=== PATIENT | male | born 1975 | race Caucasian/White ===

== ENCOUNTER 2020-10-26 09:43 | Emergency (ER) | payer OTHER ==
[~2020-10-26] VITALS: Ht 182 cm; Wt 100.0 kg
--- NOTE | 2020-10-26 09:56 | ED Upper Extremity ---
General Chief Complaint: Trauma-Non Activation Stated Complaint: HAND LAC Source: patient, EMS Exam Limitations: no limitations History of Present Illness Date Seen by Provider: Oct 26, 2020 Time Seen by Provider: 09:34 Initial Comments Patient ER by EMS from work where he was hooking up a implement to a tractor and the partner and the tractor backed up and pinned his right hand between the hitch and a tractor doing a partial degloving of his right hand and index finger and a laceration across the dorsum of his hand. He has sensation in the tips of all of his fingers. Is able to wiggle all of his fingers. He has not up-to-date on tetanus. He thinks he might have some high blood sugar but does not follow routinely with a doctor or take any medicines. He says he manages his diet. He did not get hit anywhere else lose consciousness are have any pain elsewhere. He rates his pain presently as a 7 out of 10 after he received 100 mcg of fentanyl from EMS and 4 of Zofran. Allergies and Home Medications Allergies Coded Allergies: No Known Drug Allergies (Unverified , 10/26/20) Patient Home Medication List Home Medication List Reviewed: Yes Review of Systems Constitutional: No chills, No diaphoresis EENTM: No ear discharge, No ear pain Respiratory: No cough, No short of breath Cardiovascular: No chest pain, No palpitations Gastrointestinal: No abdominal pain, No nausea Genitourinary: No discharge, No dysuria Musculoskeletal: see HPI; No back pain, No joint pain Skin: see HPI All Other Systems Reviewed Negative Unless Noted: Yes Past Rkolhkt-Nzshad-Qrkhhh Hx Patient Social History Tobacco Use?: Yes Smoking Status: Current Everyday Smoker Smokeless Tobacco Frequency: Current Everyday User Use of E-Cig and/or Vaping dev: No Substance use?: No Alcohol Use?: Yes Alcohol Frequency: Rarely Pt feels they are or have been: No Past Medical History Surgery/Hospitalization HX: hyperglycemia, controlled with diet Physical Exam Vital Signs Vital Signs - First Documented 10/26/20 09:46 Pulse 78 Resp 18 B/P (MAP) 174/119 (137) Pulse Ox 98 O2 Delivery Room Air Capillary Refill : Height, Weight, BMI Height: '" Weight: lbs. oz. kg; BMI Method: General Appearance: WD/WN, moderate distress HEENT: PERRL/EOMI, pharynx normal Neck: full range of motion, normal inspection Cardiovascular: normal peripheral pulses, regular rate, rhythm Respiratory: lungs clear, normal breath sounds, no respiratory distress, no accessory muscle use Gastrointestinal: normal bowel sounds, non tender, soft Shoulder: normal inspection, non-tender, no evidence of injury, normal ROM Elbow/Forearm: normal inspection, non-tender, no evidence of injury, normal ROM, Right Wrist: Yes normal inspection, Yes non-tender, Yes no evidence of injury, Yes normal ROM Hand: Right, laceration (10 cm laceration across the dorsum of the hand starting between the first and second digit and with partial degloving crowding of the skin down the index finger. Some dark discoloration of the second and third digit. Brisk capillary refill in all digits except for the index finger which the patient states is too tender for us to test on examination.) Neurologic/Psychiatric: no motor/sensory deficits, alert, normal mood/affect, oriented x 3, other (Sensation all 5 fingertips is intact.) Skin: other (Open laceration down to the fascia on the dorsum of the right hand but hemostatic.) Progress/Results/Core Measures Results/Orders Lab Results Laboratory Tests Test 10/26/20 09:56 Range/Units White Blood Count 10.4 4.3-11.0 10^3/uL Red Blood Count 4.98 4.30-5.52 10^6/uL Hemoglobin 15.9 13.3-17.7 g/dL Hematocrit 46 40-54 % Mean Corpuscular Volume 93 80-99 fL Mean Corpuscular Hemoglobin 32 25-34 pg Mean Corpuscular Hemoglobin Concent 34 32-36 g/dL Red Cell Distribution Width 12.4 10.0-14.5 % Platelet Count 221 130-400 10^3/uL Mean Platelet Volume 10.5 9.0-12.2 fL Immature Granulocyte % (Auto) 1 % Neutrophils (%) (Auto) 61 42-75 % Lymphocytes (%) (Auto) 29 12-44 % Monocytes (%) (Auto) 5 0-12 % Eosinophils (%) (Auto) 2 0-10 % Basophils (%) (Auto) 1 0-10 % Neutrophils # (Auto) 6.4 1.8-7.8 X 10^3 Lymphocytes # (Auto) 3.0 1.0-4.0 X 10^3 Monocytes # (Auto) 0.5 0.0-1.0 X 10^3 Eosinophils # (Auto) 0.2 0.0-0.3 10^3/uL Basophils # (Auto) 0.1 0.0-0.1 10^3/uL Immature Granulocyte # (Auto) 0.2 H 0.0-0.1 10^3/uL Sodium Level 141 135-145 MMOL/L Potassium Level 3.9 3.6-5.0 MMOL/L Chloride Level 105 98-107 MMOL/L Carbon Dioxide Level 21 21-32 MMOL/L Anion Gap 15 H 5-14 MMOL/L Blood Urea Nitrogen 14 7-18 MG/DL Creatinine 1.32 H 0.60-1.30 MG/DL Estimat Glomerular Filtration Rate 59 BUN/Creatinine Ratio 11 Glucose Level 118 H 70-105 MG/DL Calcium Level 9.4 8.5-10.1 MG/DL Corrected Calcium 9.2 8.5-10.1 MG/DL Total Bilirubin 0.3 0.1-1.0 MG/DL Aspartate Amino Transf (AST/SGOT) 24 5-34 U/L Alanine Aminotransferase (ALT/SGPT) 18 0-55 U/L Alkaline Phosphatase 67 40-136 U/L Total Protein 7.9 6.4-8.2 GM/DL Albumin 4.3 3.2-4.5 GM/DL My Orders Orders - NANETTE ANGULO Dipht,Pertmarina(Acell),Tet Adult (Boostrix (10/26/20 10:00) Cbc With Automated Diff (10/26/20 09:48) Comprehensive Metabolic Panel (10/26/20 09:48) Hand, Right, 3 Views (10/26/20 09:48) Cefazolin Injection (Ancef Injection) (10/26/20 10:00) Fentanyl Inj (Sublimaze Injection) (10/26/20 10:45) Ketamine Syringe (Ketamine Syringe) (10/26/20 10:45) End Tidal Co2 (10/26/20 10:43) Medications Given in ED Current Medications Medications Dose Ordered Sig/Rain Route Start Time Stop Time Status Last Admin Dose Admin Cefazolin Sodium 1000 mg/Sterile Water 10 ml @ 200 mls/hr ONCE ONCE IV 10/26/20 10:00 10/26/20 10:02 DC 10/26/20 10:15 200 MLS/HR Diphtheria/ Tetanus/Acell Pertussis 0.5 ml ONCE ONCE IM 10/26/20 10:00 10/26/20 10:01 DC 10/26/20 10:15 0.5 ML Fentanyl Citrate 50 mcg ONCE ONCE IVP 10/26/20 10:45 10/26/20 10:46 DC 10/26/20 10:50 50 MCG Ketamine HCl 25 mg ONCE ONCE IV 10/26/20 10:45 10/26/20 10:46 DC 10/26/20 10:56 25 MG Vital Signs/I&O 10/26/20 10/26/20 09:46 11:10 Pulse 78 85 Resp 18 18 B/P (MAP) 174/119 (137) 151/101 Pulse Ox 98 96 O2 Delivery Room Air Room Air Progress Progress Note : Time: 09:55 Progress Note Ancef, tetanus vaccine, will clean the wound with sterile saline and wrapped it with wet Kerlix. Probably needs a appropriate cleanout with a surgeon so we will discuss this with our surgeons locally. Diagnostic Imaging Diagonstic Imaging: Xray Plain Films/CT/US/NM/MRI: hand (r) Comments [facility], [place] NAME: IAN KEY [facility] REC#: [id number] PT STATUS: DEP ER : 1975 PHYSICIAN: NANETTE ANGULO MD ADMIT DATE: 10/26/20/ER Signed Date of Exam:10/26/20 HAND, RIGHT, 3 VIEWS INDICATION: Trauma, hand caught between combine and tractor. Open laceration. TECHNIQUE: 3 views of the right hand. CORRELATION STUDY: None FINDINGS: There is extensive soft tissue defect over the right hand and fingers. Markedly comminuted fractures through the 2nd metacarpal shaft and head. There is volar angulation as well as impaction and slight offset. Fracture lines extend into the articular surface. Comminuted multi-part fracture involving the proximal phalanx of the index finger. Slight impaction, angulation and displacement. There is a larger bone fragment projecting along the skin surface. Predominantly longitudinally oriented but comminuted fracture extending through the 3rd proximal phalanx which involves the proximal and distal articular surface. Slight outward displacement but otherwise near anatomic alignment. There is small bone fragment interposed between the base of the 1st and 2nd metatarsal consistent with fracture, source somewhat indeterminate. Very questionable faint lucency through the mid scaphoid bone. Radiocarpal row well-maintained. IMPRESSION: 1. Extensive comminuted fragmented fractures of the 2nd metacarpal and 2nd proximal phalanx. 2. Longitudinally oriented fractures through the 3rd proximal phalanx involving both proximal and distal articular surface. Alignment is near-anatomic. 3. Small bone fragment interposed between the base of the 1st and 2nd metacarpal, consistent with fracture, source indeterminate. Lucency at the mid scaphoid bone without definitive fracture. 4. Extensive soft tissue gas and laceration over the hand and fingers. Dictated by: Dictated on workstation # [id number] Dict: 10/26/20 1048 Trans: 10/26/20 1435 TAO [id number] Interpreted by: SHIMON SANCHEZ DO Electronically signed by: SHIMON SANCHEZ DO 10/26/20 1435 Reviewed: Reviewed by Me Consults : Consulting Physician: COSME BUTLER MD Consults Notes Discussed the case and imaging and Dr. Butler feels this patient needs a hand surgeon for his crush injuries. Departure Impression Primary Impression: Crush injury of hand Qualified Codes: S67.21XA - Crushing injury of right hand, initial encounter Disposition: XFER SHT-TRM HOSP Condition: Stable Transfer Transfer Reason: Exceeds level of care Time Spoke to Accepting Phy: 10:35 Transfer Progress Notes 1025: [place] triage: Dr Khalil Hand Surgeon agrees to take the patient. 1035: Dr. Graves in the ER agrees to accept the patient in transfer for management. Transfer Facility: [place], [place] Method of Transfer: EMS NANETTE ANGULO Oct 26, 2020 09:56
[2020-10-26] MEDS ORDERED: ceFAZolin INJECTION 1,000 MG in WATER (STERILE) FOR INJECTION 10 ML IV ONE (10:00)
[2020-10-26] MEDS ORDERED: TETANUS,DIPTH,PERTUSS P/F (BOOSTRIX) 0.5 ML VIAL IM ONE (10:00)
[2020-10-26 10:10] LABS: BASOPHILS # (AUTO) 0.1 10^3/uL (0.0-0.1); BASOPHILS % (AUTO) 1 % (0-10); EOSINOPHILS # (AUTO) 0.2 10^3/uL (0.0-0.3); EOSINOPHILS % (AUTO) 2 % (0-10); HEMATOCRIT 46 % (40-54); HEMOGLOBIN 15.9 g/dL (13.3-17.7); LYMPHOCYTES % (AUTO) 29 % (12-44); MEAN CORPUSCULAR HEMOGLOBIN 32 pg (25-34); MEAN CORPUSCULAR HGB CONC 34 g/dL (32-36); MEAN CORPUSCULAR VOLUME 93 fL (80-99); MEAN PLATELET VOLUME 10.5 fL (9.0-12.2); MONOCYTES # (AUTO) 0.5 X 10^3 (0.0-1.0); MONOCYTES % (AUTO) 5 % (0-12); NEUTROPHILS # (AUTO) 6.4 X 10^3 (1.8-7.8); NEUTROPHILS % (AUTO) 61 % (42-75); PLATELET COUNT 221 10^3/uL (130-400); WHITE BLOOD COUNT 10.4 10^3/uL (4.3-11.0)
[2020-10-26 10:21] LABS: ALBUMIN 4.3 GM/DL (3.2-4.5); POTASSIUM 3.9 MMOL/L (3.6-5.0)
[2020-10-26 10:22] LABS: CALCIUM 9.4 MG/DL (8.5-10.1)
[2020-10-26 10:23] LABS: TOTAL PROTEIN 7.9 GM/DL (6.4-8.2)
[2020-10-26 10:25] LABS: BILIRUBIN,TOTAL 0.3 MG/DL (0.1-1.0)
[2020-10-26 10:27] LABS: CREATININE SERUM 1.32 MG/DL (0.60-1.30)
[2020-10-26] MEDS ORDERED: KETAMINE SYRINGE 50 MG/5 ML SYRINGE IV ONE (10:45)
[2020-10-26] MEDS ORDERED: fentaNYL INJ 100 MCG/2 ML AMP IVP ONE (10:45)
--- NOTE | 2020-10-26 11:02 | Diagnostic Imaging Report ---
INDICATION: Trauma, hand caught between combine and tractor. Open laceration. TECHNIQUE: 3 views of the right hand. CORRELATION STUDY: None FINDINGS: There is extensive soft tissue defect over the right hand and fingers. Markedly comminuted fractures through the 2nd metacarpal shaft and head. There is volar angulation as well as impaction and slight offset. Fracture lines extend into the articular surface. Comminuted multi-part fracture involving the proximal phalanx of the index finger. Slight impaction, angulation and displacement. There is a larger bone fragment projecting along the skin surface. Predominantly longitudinally oriented but comminuted fracture extending through the 3rd proximal phalanx which involves the proximal and distal articular surface. Slight outward displacement but otherwise near anatomic alignment. There is small bone fragment interposed between the base of the 1st and 2nd metatarsal consistent with fracture, source somewhat indeterminate. Very questionable faint lucency through the mid scaphoid bone. Radiocarpal row well-maintained. IMPRESSION: 1. Extensive comminuted fragmented fractures of the 2nd metacarpal and 2nd proximal phalanx. 2. Longitudinally oriented fractures through the 3rd proximal phalanx involving both proximal and distal articular surface. Alignment is near-anatomic. 3. Small bone fragment interposed between the base of the 1st and 2nd metacarpal, consistent with fracture, source indeterminate. Lucency at the mid scaphoid bone without definitive fracture. 4. Extensive soft tissue gas and laceration over the hand and fingers. Dictated by: Dictated on workstation # [id number]
[2020-10-26 11:10] VITALS: BP 151/101
== END 2020-10-26 11:19 | disposition short-term general hospital (02) ==
LOC: ER 09:45
DX: S61.411A Laceration without foreign body of right hand, initial encounter (principal); F17.200 Nicotine dependence, unspecified, uncomplicated; Z23 Encounter for immunization; W23.1XXA Caught, crushed, jammed, or pinched between stationary objects, initial encounter
CPT/HCPCS: 36415; 73130; 80053; 85025; 90715

== ENCOUNTER 2020-11-23 01:05 | Emergency (ER) | payer OTHER ==
[~2020-11-23] VITALS: Ht 183 cm; Wt 104.0 kg
[2020-11-23] MEDS ORDERED: FLUC200T5 (01:17)
[2020-11-23] MEDS ORDERED: AMLO-250 (01:17)
[2020-11-23] MEDS ORDERED: OMEP40CA6 (01:17)
--- NOTE | 2020-11-23 01:50 | ED General ---
General Chief Complaint: Allergic Reaction Stated Complaint: POSS ALLERGIC RXN Nursing Triage Note: c/o intermittant facial/throat swelling x1 day. benadryl 50mg po at 0030 Source of Information: Patient Exam Limitations: No Limitations History of Present Illness Date Seen by Provider: Nov 23, 2020 Time Seen by Provider: 01:30 Initial Comments Patient is a 45-year-old male who presents to the emergency department today with a chief complaint of throat tightness, chest heaviness, "it feels like something sitting on my chest". Onset of symptoms yesterday. He also feels like his lips are little bit swollen. Patient states that he recently started taking amlodipine about a week ago. He also takes fluconazole weekly for fungus underneath his toenails. Patient states his looked up these medications on the Internet and found out that these medication should not be taken together. Patient denies any rashes. He feels a little shortness of breath secondary to the tightness. He is not nauseated. Denies having a history of similar symptoms. He does have hypertension, he is a smoker. No family history of heart disease. Nothing really makes the symptoms any worse. He took a dose of Benadryl, 2 tablets 50 mg (at 3pm, 8:30pm) made his symptoms a little bit better earlier but they worsened again at about 1215 this morning. He took a third dose when he woke up. Patient is not diabetic but states he has been told he has hyperglycemia in the past. He controls it with diet. All other review of systems reviewed and negative except as stated above. Timing/Duration: 1-2 Days Severity: Moderate Associated Systoms: Chest Pain ("tightness") Allergies and Home Medications Allergies Coded Allergies: No Known Drug Allergies (Unverified , 10/26/20) Home Medications Prednisone 50 Mg Tab, 50 MG PO DAILY Prescribed by: BRUNILDA GARCIA on 11/23/20 0250 Patient Home Medication List Home Medication List Reviewed: Yes Review of Systems Review of Systems Constitutional: see HPI EENTM: throat swelling Respiratory: short of breath Cardiovascular: chest pain ("tightness and heaviness") Gastrointestinal: no symptoms reported Genitourinary: no symptoms reported Musculoskeletal: no symptoms reported Skin: no symptoms reported All Other Systems Reviewed Negative Unless Noted: Yes Past Wrcbwwy-Fssqik-Vkiuzm Hx Patient Social History Tobacco Use?: Yes Tobacco type used: Cigarettes Smoking Status: Current Everyday Smoker Use of E-Cig and/or Vaping dev: No Substance use?: No Alcohol Use?: No Pt feels they are or have been: No Past Medical History Surgery/Hospitalization HX: hyperglycemia, controlled with diet, htn, orthopedic Physical Exam Vital Signs Vital Signs - First Documented 11/23/20 01:12 Temp 36.2 Pulse 92 Resp 18 B/P (MAP) 149/115 (126) Pulse Ox 98 O2 Delivery Room Air Capillary Refill : Less Than 3 Seconds Height, Weight, BMI Height: '" Weight: lbs. oz. kg; 31.00 BMI Method: General Appearance: No Apparent Distress, WD/WN Eyes: Bilateral Eye Normal Inspection, Bilateral Eye PERRL, Bilateral Eye EOMI HEENT: PERRL/EOMI, Pharynx Normal Neck: Full Range of Motion, Normal Inspection, Non Tender Respiratory: Lungs Clear, Normal Breath Sounds, No Accessory Muscle Use, No Respiratory Distress Cardiovascular: Regular Rate, Rhythm, Normal Peripheral Pulses Extremity: Normal Inspection Neurologic/Psychiatric: Alert, Oriented x3, No Motor/Sensory Deficits, Normal Mood/Affect Skin: Normal Color, Warm/Dry Progress/Results/Core Measures Suspected Sepsis SIRS Temperature: Pulse: 92 Respiratory Rate: 18 Laboratory Tests 11/23/20 01:50: White Blood Count 8.3 Blood Pressure 149 /115 Mean: 126 Laboratory Tests 11/23/20 01:50: Creatinine 1.09, Platelet Count 190 Results/Orders Lab Results Laboratory Tests Test 11/23/20 01:50 Range/Units White Blood Count 8.3 4.3-11.0 10^3/uL Red Blood Count 4.48 4.30-5.52 10^6/uL Hemoglobin 14.3 13.3-17.7 g/dL Hematocrit 43 40-54 % Mean Corpuscular Volume 95 80-99 fL Mean Corpuscular Hemoglobin 32 25-34 pg Mean Corpuscular Hemoglobin Concent 34 32-36 g/dL Red Cell Distribution Width 12.1 10.0-14.5 % Platelet Count 190 130-400 10^3/uL Mean Platelet Volume 10.1 9.0-12.2 fL Immature Granulocyte % (Auto) 1 % Neutrophils (%) (Auto) 60 42-75 % Lymphocytes (%) (Auto) 27 12-44 % Monocytes (%) (Auto) 6 0-12 % Eosinophils (%) (Auto) 6 0-10 % Basophils (%) (Auto) 1 0-10 % Neutrophils # (Auto) 4.9 1.8-7.8 10^3/uL Lymphocytes # (Auto) 2.3 1.0-4.0 10^3/uL Monocytes # (Auto) 0.5 0.0-1.0 10^3/uL Eosinophils # (Auto) 0.5 H 0.0-0.3 10^3/uL Basophils # (Auto) 0.0 0.0-0.1 10^3/uL Immature Granulocyte # (Auto) 0.1 0.0-0.1 10^3/uL Sodium Level 143 135-145 MMOL/L Potassium Level 3.9 3.6-5.0 MMOL/L Chloride Level 106 98-107 MMOL/L Carbon Dioxide Level 22 21-32 MMOL/L Anion Gap 15 H 5-14 MMOL/L Blood Urea Nitrogen 13 7-18 MG/DL Creatinine 1.09 0.60-1.30 MG/DL Estimat Glomerular Filtration Rate 73 BUN/Creatinine Ratio 12 Glucose Level 103 70-105 MG/DL Calcium Level 9.1 8.5-10.1 MG/DL Total Creatine Kinase 136 30-200 U/L Troponin I < 0.028 <0.028 NG/ML My Orders Orders - BRUNILDA GARCIA MD Ed Iv/Invasive Line Start (11/23/20 01:43) Cbc With Automated Diff (11/23/20 01:43) Basic Metabolic Panel (11/23/20 01:43) Creatine Kinase (11/23/20 01:43) Troponin I (11/23/20 01:43) Chest 1 View, Ap/Pa Only (11/23/20 01:43) Ekg Tracing (11/23/20 01:43) Prednisone Tablet (Deltasone Tablet) (11/23/20 02:45) Vital Signs/I&O 11/23/20 01:12 Temp 36.2 Pulse 92 Resp 18 B/P (MAP) 149/115 (126) Pulse Ox 98 O2 Delivery Room Air Capillary Refill : Less Than 3 Seconds Blood Pressure Mean: 126 Progress Note : Time: 02:46 Progress Note Patient comfortable. Vital signs are stable. Labs have been reviewed and are u nremarkable. No elevated troponin. No abnormal chemistry or CBC. EKG shows a little bit of J-point elevation/early repole in leads V45 and 6 and possibly in V3. No reciprocal changes. Patient is encouraged to follow-up with his primary care doctor tomorrow. He states that he would rather take the blood pressure medicine than the fluconazole if they are interacting. I have encouraged the patient to continue his Benadryl for the next couple of days. I am going to put him on Benadryl for the next 3 days after tonight. Patient is given good return precautions. He verbalizes understanding. All questions are sought and answered. Patient is stable for discharge. ECG Initial ECG Impression Date: Nov 23, 2020 Initial ECG Impression Time: 01:52 Initial ECG Rate: 84 Initial ECG Rhythm: Normal Sinus Initial ECG Intervals: Normal Initial ECG Intervals W[place] 198 QRS 77 QTC 434 Initial ECG Impression: Nonspecific Changes Comment Patient noted to have a little ST segment elevation of 1 mm in leads V4 5 and 6 no reciprocal changes, PVC noted Departure Impression Primary Impression: Medication reaction Qualified Codes: T50.905A - Adverse effect of unspecified drugs, medicaments and biological substances, initial encounter Disposition: HOME, SELF-CARE Condition: Stable Departure-Patient Inst. Decision time for Depature: 01:55 Referrals: NO,LOCAL PHYSICIAN (PCP/Family) Primary Care Physician Patient Instructions: Adverse Drug Reactions, Adult ED Add. Discharge Instructions: Take the prednisone, 50 mg once a day for the next 3 days. This medication may increase your blood pressure a little bit. Continue Benadryl 1 to 2 tablets every 4-6 hours as needed for the shortness of breath/ throat swelling symptoms. If you have any worsening symptoms, difficulty swallowing, increasing hoarseness, shortness of breath or any other emergent concerns please come back to the emergency room for reevaluation. Please check in with your primary care physician tomorrow regarding your symptoms. Scripts Prednisone (Prednisone) 50 Mg Tab 50 MG PO DAILY, #3 TAB Prov: BRUNILDA GARCIA MD 11/23/20 BRUNILDA GARCIA MD Nov 23, 2020 01:50
[2020-11-23 02:00] LABS: BASOPHILS % (AUTO) 1 % (0-10); EOSINOPHILS # (AUTO) 0.5 10^3/uL (0.0-0.3); EOSINOPHILS % (AUTO) 6 % (0-10); HEMATOCRIT 43 % (40-54); HEMOGLOBIN 14.3 g/dL (13.3-17.7); LYMPHOCYTES # (AUTO) 2.3 10^3/uL (1.0-4.0); LYMPHOCYTES % (AUTO) 27 % (12-44); MEAN CORPUSCULAR HEMOGLOBIN 32 pg (25-34); MEAN CORPUSCULAR HGB CONC 34 g/dL (32-36); MEAN CORPUSCULAR VOLUME 95 fL (80-99); MEAN PLATELET VOLUME 10.1 fL (9.0-12.2); MONOCYTES # (AUTO) 0.5 10^3/uL (0.0-1.0); MONOCYTES % (AUTO) 6 % (0-12); NEUTROPHILS # (AUTO) 4.9 10^3/uL (1.8-7.8); NEUTROPHILS % (AUTO) 60 % (42-75); PLATELET COUNT 190 10^3/uL (130-400); WHITE BLOOD COUNT 8.3 10^3/uL (4.3-11.0)
[2020-11-23 02:10] LABS: CHLORIDE 106 MMOL/L (98-107); POTASSIUM 3.9 MMOL/L (3.6-5.0)
[2020-11-23 02:11] LABS: SODIUM 143 MMOL/L (135-145)
[2020-11-23 02:12] LABS: CALCIUM 9.1 MG/DL (8.5-10.1); GLUCOSE 103 MG/DL (70-105)
[2020-11-23 02:14] LABS: CARBON DIOXIDE 22 MMOL/L (21-32)
[2020-11-23 02:16] LABS: CREATININE SERUM 1.09 MG/DL (0.60-1.30); GFR ESTIMATED 73
[2020-11-23 02:17] LABS: BUN/CREATININE RATIO 12
[2020-11-23 02:19] LABS: CREATINE KINASE 136 U/L (30-200)
[2020-11-23] MEDS ORDERED: predniSONE 20 MG TAB PO ONE (02:45)
[2020-11-23] MEDS ORDERED: PRD50T PO (02:50)
[2020-11-23 02:51] VITALS: BP 138/95
--- NOTE | 2020-11-23 06:45 | Diagnostic Imaging Report ---
Indication: Intermittent facial and throat swelling for one day. FINDINGS: Frontal view of the chest demonstrates the lungs to be clear. The heart, mediastinum and pulmonary vascularity are normal. There are no pleural effusions. Old healed right rib fractures present. IMPRESSION: There are no acute findings to the chest. Dictated by: Dictated on workstation # [id number]
--- OUTSIDE RECORDS SUMMARY | 2020-11-23 17:37 | XMS REPORT | Clinical Summary ---
Author Author [facility] ity [facility] it Address Unknown Phone Unavailable Care Team Providers Care Housefellow Name Role Phone PP Unavailable Allergies Not on File Medications Not on file Active Problems Not on file Social History Date Tobacco Use Types Packs/Day Years Used Never Assessed Sex Assigned at Date Recorded Not on file Plan of Treatment Not on file Results Not on filefrom Last 3 Months
== END 2020-11-23 02:57 | disposition home or self-care (01) ==
LOC: EDUNIT# 01:05 → ER 01:09
DX: T50.905A Adverse effect of unspecified drugs, medicaments and biological substances, initial encounter (principal); I10 Essential (primary) hypertension; F17.210 Nicotine dependence, cigarettes, uncomplicated
CPT/HCPCS: 36415; 71045; 80048; 82550; 84484; 85025; 93005

== ENCOUNTER 2020-11-29 21:11 | Emergency (ER) | payer OTHER ==
[~2020-11-29] VITALS: Ht 182.9 cm; Wt 106.6 kg
[~2020-11-29 21:11] MED LIST: AMLO-250; FLUC200T5; OMEP40CA6; PRD50T PO
[2020-11-29] MEDS ORDERED: ASPIRIN 81 MG CHEW (CHILDREN'S ASA) PO ONE (21:30)
--- NOTE | 2020-11-29 21:57 | ED Chest Pain ---
General Chief Complaint: Chest Pain Stated Complaint: CHEST PAIN History of Present Illness Date Seen by Provider: Nov 29, 2020 Time Seen by Provider: 21:20 Initial Comments 45-year-old male reports onset of chest pain at approximately 1830, it did resolve and then returned. He has no known history of cardiac disease, he has previously been on amlodipine but he stopped that a few days ago because he was having a reaction between his medications. He had a recent crush injury to his right hand, he noted the chest pain began after putting the silvadene on his wound. He removed the cream and the pain resolved. Later in the evening he applied vaseline to his wound, again the chests pain returned. He is concerned about a phantom limb pain or nerve causing the symptoms. He reports the chest pain is mid sternal and does radiate at times to both arms. He is not taking aspirin daily. He denies being diabetic or using tobacco products. He is having no nausea or diaphoresis. Timing/Duration: 1-3 hours Severity/Quality: mild Location: substernal Radiation: no radiation Prior CP/Workup: no prior chest pain ASA po [employer]: No NTG SL [employer]: No Associated Symptoms: No abdominal pain, No dizziness, No edema, No fever /chills, No heartburn, No nausea/vomiting, No rash, No shortness of breath Allergies and Home Medications Allergies Coded Allergies: No Known Drug Allergies (Unverified , 10/26/20) Home Medications Prednisone 50 Mg Tab, 50 MG PO DAILY Prescribed by: BRUNILDA GARCAI on 11/23/20 0250 Patient Home Medication List Home Medication List Reviewed: Yes Review of Systems Review of Systems Constitutional: no symptoms reported, see HPI Cardiovascular: See HPI, Chest Pain Musculoskeletal: see HPI, other (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 Healing wound.) All Other Systems Reviewed Negative Unless Noted: Yes Past Hamqbir-Bxspfn-Ktbfio Hx Patient Social History Tobacco Use?: No Past Medical History Surgery/Hospitalization HX: hyperglycemia, controlled with diet, htn, orthopedic Family Medical History Reviewed and Corrections made Heart Disease, CAD Over 55 Years Old Physical Exam Vital Signs Capillary Refill : Height, Weight, BMI Height: '" Weight: lbs. oz. kg; 31.00 BMI Method: General Appearance: No Apparent Distress, WD/WN HEENT: PERRL/EOMI, TMs Normal, Normal ENT Inspection, Pharynx Normal Neck: Full Range of Motion, Normal Inspection, Non Tender, Supple Respiratory: Chest Non Tender, Lungs Clear, Normal Breath Sounds Cardiovascular: Regular Rate, Rhythm, No Edema, No Murmur, Normal Peripheral Pulses Gastrointestinal: Normal Bowel Sounds, Non Tender, Soft Extremity: Normal Capillary Refill, Normal Range of Motion, Non Tender, No Calf Tenderness, No Pedal Edema, Other (Healing wound to right hand. No active drainage, trace erythema, no warmth. Hypersensitive to touch.) Neurologic/Psychiatric: Alert, Oriented x3, No Motor/Sensory Deficits, Normal Mood/Affect Skin: Normal Color, Warm/Dry Progress/Results/Core Measures Results/Orders Lab Results Laboratory Tests Test 11/29/20 21:30 Range/Units White Blood Count 13.3 H 4.3-11.0 10^3/uL Red Blood Count 4.57 4.30-5.52 10^6/uL Hemoglobin 14.4 13.3-17.7 g/dL Hematocrit 43 40-54 % Mean Corpuscular Volume 94 80-99 fL Mean Corpuscular Hemoglobin 32 25-34 pg Mean Corpuscular Hemoglobin Concent 33 32-36 g/dL Red Cell Distribution Width 12.3 10.0-14.5 % Platelet Count 217 130-400 10^3/uL Mean Platelet Volume 10.2 9.0-12.2 fL Immature Granulocyte % (Auto) 2 % Neutrophils (%) (Auto) 59 42-75 % Lymphocytes (%) (Auto) 28 12-44 % Monocytes (%) (Auto) 5 0-12 % Eosinophils (%) (Auto) 5 0-10 % Basophils (%) (Auto) 1 0-10 % Neutrophils # (Auto) 7.8 1.8-7.8 10^3/uL Lymphocytes # (Auto) 3.8 1.0-4.0 10^3/uL Monocytes # (Auto) 0.7 0.0-1.0 10^3/uL Eosinophils # (Auto) 0.7 H 0.0-0.3 10^3/uL Basophils # (Auto) 0.1 0.0-0.1 10^3/uL Immature Granulocyte # (Auto) 0.3 H 0.0-0.1 10^3/uL Prothrombin Time 12.7 12.2-14.7 SEC INR Comment 0.9 0.8-1.4 Activated Partial Thromboplast Time 29 24-35 SEC Sodium Level 138 135-145 MMOL/L Potassium Level 3.5 L 3.6-5.0 MMOL/L Chloride Level 102 98-107 MMOL/L Carbon Dioxide Level 24 21-32 MMOL/L Anion Gap 12 5-14 MMOL/L Blood Urea Nitrogen 16 7-18 MG/DL Creatinine 1.13 0.60-1.30 MG/DL Estimat Glomerular Filtration Rate 70 BUN/Creatinine Ratio 14 Glucose Level 104 70-105 MG/DL Calcium Level 9.3 8.5-10.1 MG/DL Corrected Calcium 9.1 8.5-10.1 MG/DL Magnesium Level 2.1 1.6-2.4 MG/DL Total Bilirubin 0.3 0.1-1.0 MG/DL Aspartate Amino Transf (AST/SGOT) 17 5-34 U/L Alanine Aminotransferase (ALT/SGPT) 21 0-55 U/L Alkaline Phosphatase 70 40-136 U/L Myoglobin 48.2 10.0-92.0 NG/ML Troponin I < 0.028 <0.028 NG/ML Total Protein 7.4 6.4-8.2 GM/DL Albumin 4.2 3.2-4.5 GM/DL My Orders Orders - NAN CLARK Cbc With Automated Diff (11/29/20 21:28) Magnesium (11/29/20 21:28) Chest 1 View, Ap/Pa Only (11/29/20 21:28) Ekg Tracing (11/29/20 21:28) Comprehensive Metabolic Panel (11/29/20 21:28) Myoglobin Serum (11/29/20 21:28) Protime With Inr (11/29/20 21:28) Partial Thromboplastin Time (11/29/20 21:28) Monitor-Rhythm Ecg Trace Only (11/29/20 21:28) Ed Iv/Invasive Line Start (11/29/20 21:28) Troponin I (11/29/20 21:28) Aspirin Chewable Tablet (Baby Aspirin Ch (11/29/20 21:30) Nitroglycerin 0.4 Mg Btl 25's (Nitrostat (11/29/20 22:15) Medications Given in ED Current Medications Medications Dose Ordered Sig/Rain Route Start Time Stop Time Status Last Admin Dose Admin Aspirin 324 mg ONCE ONCE PO 11/29/20 21:30 11/29/20 21:31 DC 11/29/20 21:51 324 MG Progress Progress Note : Time: 21:20 Progress Note Patient seen and evaluated, will obtain a chest x-ray, EKG and labs. Will give aspirin 324 mg orally. Nitro 1 tab SL. 2199 Nitro held, b/p 128/84. patient reports pain is improving. No complaints at this time. 2239 patient reports no further chest pain. His labs and EKG were all normal. Discharge instructions and return precautions reviewed with him. Initial ECG Impression Date: Nov 29, 2020 Initial ECG Impression Time: 21:26 Initial ECG Rate: 70 Initial ECG Rhythm: Normal Sinus Initial ECG Intervals: Normal Initial ECG Intervals WA 185, QRSD 87, QT 377, QTc 407. Nenzel. 30, QRS 5, T 22. Initial ECG Impression: Normal Initial ECG Comparisson: Unchanged Diagnostic Imaging Diagonstic Imaging: Xray Plain Films/CT/US/NM/MRI: chest Comments NAME: [facility] REC#: [id number] PT STATUS: REG ER : 1975 PHYSICIAN: NAN CLARK ADMIT DATE: 11/29/20/ER Draft Date of Exam:11/29/20 CHEST 1 VIEW, AP/PA ONLY INDICATION: Chest pain EXAM: Portable chest at 9:50 PM FINDINGS: The heart size and pulmonary vascularity are normal. Lungs are clear. There are no effusions or pneumothoraces. IMPRESSION: Negative chest. Dictated on workstation # [id number] Dict: 11/29/202157 Trans: 11/29/202205 [facility] [id number] Interpreted by: ANNIE MAHARAJ MD Electronically signed by: Reviewed: Reviewed by Me Departure Impression Primary Impression: Chest pain Qualified Codes: R07.9 - Chest pain, unspecified Disposition: HOME, SELF-CARE Condition: Improved Departure-Patient Inst. Decision time for Depature: 22:40 Referrals: NO,LOCAL PHYSICIAN (PCP/Family) Primary Care Physician Patient Instructions: Chest Pain That Is Not Caused by the Heart (DC) Add. Discharge Instructions: Continue to take aspirin 81 mg once daily. Follow-up with your primary care provider for medication adjustments and changes. Return to the emergency department for new onset of chest pain, or new, urgent healthcare problems. All discharge instructions reviewed with patient and/or family. Voiced understanding. Copy Copies To 1: ANDRES JAMIL AMY ARNP Nov 29, 2020 21:57
[2020-11-29 22:05] LABS: ALBUMIN 4.2 GM/DL (3.2-4.5); BILIRUBIN,TOTAL 0.3 MG/DL (0.1-1.0); CALCIUM 9.3 MG/DL (8.5-10.1); CREATININE SERUM 1.13 MG/DL (0.60-1.30); MAGNESIUM 2.1 MG/DL (1.6-2.4); POTASSIUM 3.5 MMOL/L (3.6-5.0); TOTAL PROTEIN 7.4 GM/DL (6.4-8.2)
[2020-11-29 22:07] LABS: BASOPHILS # (AUTO) 0.1 10^3/uL (0.0-0.1); BASOPHILS % (AUTO) 1 % (0-10); EOSINOPHILS # (AUTO) 0.7 10^3/uL (0.0-0.3); EOSINOPHILS % (AUTO) 5 % (0-10); HEMATOCRIT 43 % (40-54); HEMOGLOBIN 14.4 g/dL (13.3-17.7); LYMPHOCYTES # (AUTO) 3.8 10^3/uL (1.0-4.0); LYMPHOCYTES % (AUTO) 28 % (12-44); MEAN CORPUSCULAR HEMOGLOBIN 32 pg (25-34); MEAN CORPUSCULAR HGB CONC 33 g/dL (32-36); MEAN CORPUSCULAR VOLUME 94 fL (80-99); MEAN PLATELET VOLUME 10.2 fL (9.0-12.2); MONOCYTES # (AUTO) 0.7 10^3/uL (0.0-1.0); MONOCYTES % (AUTO) 5 % (0-12); NEUTROPHILS # (AUTO) 7.8 10^3/uL (1.8-7.8); NEUTROPHILS % (AUTO) 59 % (42-75); PLATELET COUNT 217 10^3/uL (130-400); WHITE BLOOD COUNT 13.3 10^3/uL (4.3-11.0)
--- NOTE | 2020-11-29 22:07 | Diagnostic Imaging Report ---
INDICATION: Chest pain EXAM: Portable chest at 9:50 PM FINDINGS: The heart size and pulmonary vascularity are normal. Lungs are clear. There are no effusions or pneumothoraces. IMPRESSION: Negative chest. Dictated by: Dictated on workstation # [id number]
[2020-11-29 22:10] LABS: INR 0.9 (0.8-1.4); PROTHROMBIN TIME PATIENT 12.7 SEC (12.2-14.7)
[2020-11-29] MEDS ORDERED: NITROGLYCERIN 0.4 MG SL TABS BTL 25'S SL ONE (22:15)
[2020-11-29 23:00] VITALS: BP 132/84
== END 2020-11-29 23:00 | disposition home or self-care (01) ==
LOC: EDUNIT# 21:11 → ER 21:14
DX: R07.9 Chest pain, unspecified (principal); I10 Essential (primary) hypertension; Z79.52 Long term (current) use of systemic steroids
CPT/HCPCS: 36415; 71045; 80053; 83735; 83874; 84484; 85025; 85610; 85730; 93005; 93041

== ENCOUNTER → 2021-01-23 | Outpatient (CLI) | payer OTHER ==
[~2021-01-23] VITALS: Ht 182.9 cm; Wt 104.5 kg
[~2021-01-23] MED LIST changes: +ACETAMINOPHEN 500 MG TAB (TYLENOL) PO PRN; +CASIRIVIMAB/IMDEVIMAB 1,200 MG in NS (IVPB) 250 ML IV ONE; +EPINEPHrine INJECTION 1 MG/ML AMP IM PRN; +ONDANSETRON 4 MG/2 ML (SDV) Z0FRAN IV PRN; +diphenhydrAMINE 50 MG/ML INJ (BENADRYL) IV PRN
[2021-01-23 12:17] VITALS: BP 135/91
[2021-01-23 13:59] VITALS: BP 126/94
== END ==
LOC: INFUSION 12:06
PROVIDERS: ATTEND Nurse Practitioner Family
DX: U07.1 COVID-19 (principal)